=== PATIENT | male | born 1945 | race Caucasian/White ===

== ENCOUNTER 2018-04-08 18:32 | Emergency (ER) | payer OTHER ==
[~2018-04-08] VITALS: Ht 162.6 cm; Wt 76.9 kg
[2018-04-08 21:56] LABS: BASOPHIL COUNT 0.1 K/uL (0-0.1); EOSINOPHIL (%) 4.6 % (0-5); EOSINOPHIL COUNT 0.3 K/uL (0-0.3); HEMATOCRIT 37.2 % (38.0-50.0); HEMOGLOBIN 12.3 G/DL (12.5-16.6); IMMATURE GRANULOCYTE (%) 0.4 % (0.0-0.7); LYMPHOCYTE (%) 29.7 % (15-42); MCH 26.1 PG (29.0-34.0); MCHC 33.1 G/DL (30.0-36.0); MCV 78.8 FL (86-99); MONOCYTE (%) 10.5 % (3-12); MONOCYTE COUNT 0.7 K/uL (0-0.8); NEUTROPHIL (%) 53.8 % (45-76); NEUTROPHIL COUNT 3.6 K/uL (1.8-6.4); PLATELET COUNT 272 K/uL (156-360); RED BLOOD COUNT 4.72 M/uL (4.00-5.50); WHITE BLOOD COUNT 6.7 K/uL (4.1-10.2)
[2018-04-08 22:07] LABS: CHLORIDE 102 mEq/L (99-109); SODIUM 137 mEq/L (136-147)
[2018-04-08 22:09] LABS: GLUCOSE 101 mg/dL (70-99)
[2018-04-08 22:13] LABS: CREATININE 1.2 mg/dL (0.6-1.3); GFR ESTIMATE (CALCULATED) > 59 mL/min/ (58.99-99999)
[2018-04-08 22:14] LABS: UREA NITROGEN (BUN) 16 mg/dL (9-23)
[2018-04-08] MEDS ORDERED: CIPRO HC OTIC S10 ML RIGHT EAR (22:32)
[2018-04-08] MEDS ORDERED: NORCO 10/3251 TABLET PO (22:33)
[2018-04-08 23:03] VITALS: BP 160/73
== END 2018-04-08 23:04 | disposition home or self-care (01) ==
LOC: EME 18:32
PROVIDERS: Emergency Medicine
DX: H60.91 Unspecified otitis externa, right ear (principal); H61.21 Impacted cerumen, right ear; R51 Headache; E11.9 Type 2 diabetes mellitus without complications; E78.5 Hyperlipidemia, unspecified; I10 Essential (primary) hypertension; Z87.891 Personal history of nicotine dependence
CPT/HCPCS: 70450; 70486; 80048; 85025; 87070; 99281; 99284